=== PATIENT | male | born 1985 | race Caucasian/White ===

== ENCOUNTER → 2018-11-07 | Outpatient (CLI) | payer OTHER ==
[~2018-11-07] MED LIST: CONRAY-43 43% 50ML VIAL (Q9960) As Ordered ONE; PROHANCE 279.3MG/ML 5ML VIAL (A9576) As Ordered ONE
--- NOTE | 2018-11-07 09:31 | REP ---
MR ARTHROGRAPHY LEFT SHOULDER: With pre- and post intra-articular gadolinium enhanced saline injected imaging: HISTORY: Persistent pain in the left shoulder. Status post diagnostic arthroscopy with repair of the posterior labrum. Biceps tenodesis and distal clavicle excision approximately 1 year ago. No comparison imaging available. TECHNIQUE: The injection procedure is performed and dictated separately. Pre- and post intra-articular gadolinium enhanced saline injected imaging is acquired. Imaging planes include axial, oblique coronal, oblique sagittal and ABER projection images. T1- and T2-weighted scans are included with and without fat saturation. MRI FINDINGS: The distal clavicle is resected. The AC joint is diastatic as a result. There is a tiny sliver of subacromial subdeltoid bursal fluid. Mild supraspinatus tendinosis is seen but no focal cuff tear is appreciated. There appears to be three orthopedic anchor tracks in the mid and posterior glenoid bone. There is a nondisplaced tear through the posterior cartilaginous labrum with some fraying and slight fragmentation. Superior labrum appears to be intact. No anterior labral tear is appreciated. Postcontrast imaging shows good filling and enhancement of the glenoid articulation. There is no visible loose body. The biceps tendon is not visible in the bony bicipital groove. There is evidence of postoperative anchor in the proximal humerus consistent with biceps tendon transfer. There is moderate tendinosis in the subscapularis tendon near its insertion on precontrast imaging. No evidence of full-thickness tear on post contrast imaging. There is focal articular cartilage irregularity of the surface of the glenoid consistent with moderate chondromalacia. IMPRESSION: Postoperative changes as above. Tendinosis focally in the distal subscapularis tendon possible partial tear. No complete cuff tear seen. 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 Fraying and some fragmentation of a posterior glenoid labral tear. Electronically Signed by Carlos Grewal MD 11/07/2018 03:03 P
--- NOTE | 2018-11-07 15:08 | REP ---
Procedure: Left shoulder arthrogram The procedure was performed under the direct supervision of Dr. Grewal. History: Left shoulder pain The benefits and risks including but not limited to pain, infection, bleeding and anaphylaxis were explained to the patient and informed consent was obtained. Technique: The left glenohumeral joint space was localized using fluoroscopic guidance. The skin was prepped and draped in a sterile fashion. 1% lidocaine was used as a local anesthetic. Using fluoroscopic guidance a 22 gauge spinal needle was inserted and advanced into the joint. 0.5 ml of Conray 43 was injected to verify placement. 11 ml of a solution containing 20 ml of sterile saline and 0.15 ml of ProHance was injected into the joint. The needle was removed and the patient was taken to MRI for postprocedural imaging. The the patient tolerated the procedure well and there were no immediate complications. Less than 6 seconds of fluoro time was utilized for this procedure. Reviewed by KRISS Olsen 11/07/2018 01:26 P Electronically Signed by Carlos Grewal MD 11/07/2018 02:58 P
== END ==
LOC: M RADPRO 06:24
PROVIDERS: ATTEND Physician Assistant
DX: M75.22 Bicipital tendinitis, left shoulder (principal); M94.212 Chondromalacia, left shoulder; M25.512 Pain in left shoulder
CPT/HCPCS: 23350; 73223; 77002; A9576; Q9960